=== PATIENT | male | born 1995 | race African-American/Black ===

== ENCOUNTER 2020-07-10 16:58 | Emergency (ER) | payer OTHER, SELFPAY ==
[2020-07-10] MEDS ORDERED: Ibuprofen 800 MG TAB ONE (17:08)
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
== END 2020-07-10 17:50 | disposition home or self-care (01) ==
LOC: ERS 16:58
DX: S50.12XA Contusion of left forearm, initial encounter (principal); V43.62XA Car passenger injured in collision with other type car in traffic accident, initial encounter

== ENCOUNTER 2020-11-17 01:59 | Emergency (ER) | payer SELFPAY ==
[2020-11-17] MEDS ORDERED: Lidocaine 1% w/Epinephrine 1:100K 20 ML VIAL ONE (02:37)
== END 2020-11-17 03:19 | disposition home or self-care (01) ==
LOC: ERS 01:59
DX: L03.012 Cellulitis of left finger (principal)
CPT/HCPCS: 10060